=== PATIENT | male | born 1935 | race Caucasian/White ===

== ENCOUNTER → 2020-03-10 | Outpatient (CLI) | payer MEDICARE, OTHER ==
[~2020-03-10] MED LIST: CATHETER FLUSH 10 ML SYR IV PRN; HOLD METFORMIN - RECEIVED CONTRAST 20 ML VIAL IV SCH; IOHEXOL 350 MG/ML 100 ML (OMNIPAQUE 350) VIAL IV ONE; NS 100 ML (IVPB) BAG IV ONE
[2020-03-10 08:56] LABS: BUN/CREATININE RATIO 12; CARBON DIOXIDE 22 MMOL/L (21-32); CHLORIDE 106 MMOL/L (98-107); CREATININE SERUM 1.09 MG/DL (0.60-1.30); GFR ESTIMATED > 60; POTASSIUM 4.4 MMOL/L (3.6-5.0); SODIUM 138 MMOL/L (135-145)
[2020-03-10 08:57] LABS: ALANINE AMINOTRANSFERASE 5 U/L (0-55); ALKALINE PHOSPHATASE 52 U/L (40-136); BILIRUBIN,TOTAL 1.2 MG/DL (0.1-1.0); CALCIUM 8.9 MG/DL (8.5-10.1); GLUCOSE 93 MG/DL (70-105); TOTAL PROTEIN 7.3 GM/DL (6.4-8.2)
[2020-03-10 08:58] LABS: ALBUMIN 3.5 GM/DL (3.2-4.5)
--- NOTE | 2020-03-10 10:31 | Diagnostic Imaging Report ---
CT CHEST W TECHNIQUE: Multiple contiguous axial images were obtained through the chest with the use of intravenous contrast. All CT scans use one or more of the following dose optimizing techniques: automated exposure control, MA and/or KvP adjustment based on a patient size and exam type, or iterative reconstruction. INDICATION: Abnormal chest x-ray COMPARISON: None available. FINDINGS: Lungs and airway: No endoluminal nodule within the trachea. No pulmonary mass or consolidation. No bronchiectasis or honeycombing. Calcified granuloma within the left lower lobe. No suspicious pulmonary nodules. Pleura: No pleural effusion or pneumothorax. Heart and mediastinum: Thyroid is normal. No supraclavicular or axillary lymphadenopathy. No mediastinal, hilar or juxtaphrenic lymphadenopathy. Heart is mildly enlarged without pericardial effusion. Coronary artery calcifications are present. Small sliding-type hiatal hernia. Upper abdomen: Exophytic cyst in the upper pole of the right kidney. A small amount of pneumobilia is identified which may be from prior sphincterotomy. No acute abnormality in the upper abdomen. 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 No worrisome focal osseous lesion on either side. IMPRESSION: 1. No features of intrathoracic neoplasm or acute process. 2. Cardiomegaly with coronary artery plaquing. Dictated by: Dictated on workstation # [id number]
== END ==
LOC: LAB FS 07:44
PROVIDERS: ATTEND Family Medicine
DX: I25.10 Atherosclerotic heart disease of native coronary artery without angina pectoris (principal); I51.7 Cardiomegaly; R93.89 Abnormal findings on diagnostic imaging of other specified body structures
CPT/HCPCS: 36415; 71260; 80053

== ENCOUNTER 2021-02-21 21:57 | Emergency (ER) | payer MEDICARE, OTHER ==
[~2021-02-21] VITALS: Ht 167 cm; Wt 83.5 kg
--- NOTE | 2021-02-21 22:02 | ED General ---
General Stated Complaint: AMS History of Present Illness Date Seen by Provider: Feb 21, 2021 Time Seen by Provider: 22:02 Initial Comments 85-year-old male brought in by EMS. Patient himself does not have any complaints. Family reports that "he was not acting right" but upon arrival to the ER family told nurse that he was "back to his normal. EMS reports that the patient had little lower blood pressure upon arrival to his home however this is not the case upon arrival to the ER. Patient does not report any recent cough, fever chills shortness of breath or urinary symptoms. Allergies and Home Medications Allergies Coded Allergies: No Allergy Information Available (Unverified , 03/10/20) Patient Home Medication List Home Medication List Reviewed: Yes Review of Systems Review of Systems Constitutional: see HPI EENTM: no symptoms reported Respiratory: no symptoms reported Cardiovascular: no symptoms reported Gastrointestinal: no symptoms reported Genitourinary: no symptoms reported Musculoskeletal: no symptoms reported Skin: no symptoms reported Psychiatric/Neurological: See HPI Physical Exam Vital Signs Vital Signs - First Documented 02/21/21 22:00 Temp 36.5 Pulse 53 Resp 14 B/P (MAP) 115/45 (68) Pulse Ox 96 O2 Delivery Room Air Capillary Refill : Height, Weight, BMI Height: '" Weight: lbs. oz. kg; BMI Method: General Appearance: No Apparent Distress, WD/WN HEENT: PERRL/EOMI Neck: Non Tender Respiratory: Lungs Clear, Normal Breath Sounds Cardiovascular: Regular Rate, Rhythm, Other (bilateral 1+ edema, chronic ) Neurologic/Psychiatric: Alert, Oriented x3, No Motor/Sensory Deficits, Normal Mood/Affect, him tech II-XII Norm as Tested Skin: Normal Color, Warm/Dry Progress/Results/Core Measures Suspected Sepsis SIRS Temperature: Pulse: Respiratory Rate: Laboratory Tests 02/21/21 22:10: White Blood Count 7.2 Blood Pressure / Mean: Laboratory Tests 02/21/21 22:10: Platelet Count 181 02/21/21 22:54: Creatinine 1.27, Total Bilirubin 1.0 Results/Orders Lab Results Laboratory Tests Test 02/21/21 22:10 02/21/21 22:54 Range/Units White Blood Count 7.2 4.3-11.0 10^3/uL Red Blood Count 3.86 L 4.30-5.52 10^6/uL Hemoglobin 12.1 L 13.3-17.7 g/dL Hematocrit 36 L 40-54 % Mean Corpuscular Volume 92 80-99 fL Mean Corpuscular Hemoglobin 31 25-34 pg Mean Corpuscular Hemoglobin Concent 34 32-36 g/dL Red Cell Distribution Width 13.3 10.0-14.5 % Platelet Count 181 130-400 10^3/uL Mean Platelet Volume 9.3 9.0-12.2 fL Immature Granulocyte % (Auto) 0 % Neutrophils (%) (Auto) 54 42-75 % Lymphocytes (%) (Auto) 30 12-44 % Monocytes (%) (Auto) 9 0-12 % Eosinophils (%) (Auto) 6 0-10 % Basophils (%) (Auto) 1 0-10 % Neutrophils # (Auto) 3.9 1.8-7.8 X 10^3 Lymphocytes # (Auto) 2.1 1.0-4.0 X 10^3 Monocytes # (Auto) 0.7 0.0-1.0 X 10^3 Eosinophils # (Auto) 0.4 H 0.0-0.3 10^3/uL Basophils # (Auto) 0.1 0.0-0.1 10^3/uL Sodium Level 140 135-145 MMOL/L Potassium Level 4.7 3.6-5.0 MMOL/L Chloride Level 105 98-107 MMOL/L Carbon Dioxide Level 24 21-32 MMOL/L Anion Gap 11 5-14 MMOL/L Blood Urea Nitrogen 17 7-18 MG/DL Creatinine 1.27 0.60-1.30 MG/DL Estimat Glomerular Filtration Rate 54 BUN/Creatinine Ratio 13 Glucose Level 137 H 70-105 MG/DL Calcium Level 8.9 8.5-10.1 MG/DL Corrected Calcium 9.1 8.5-10.1 MG/DL Magnesium Level 2.1 1.6-2.4 MG/DL Total Bilirubin 1.0 0.1-1.0 MG/DL Aspartate Amino Transf (AST/SGOT) 11 5-34 U/L Alanine Aminotransferase (ALT/SGPT) 5 0-55 U/L Alkaline Phosphatase 49 40-136 U/L Troponin I < 0.30 <0.30 NG/ML Total Protein 7.2 6.4-8.2 GM/DL Albumin 3.8 3.2-4.5 GM/DL My Orders Orders - FREDDY GARCIA DO Ct Head Wo-R/O Stroke (02/21/21 22:02) Cbc With Automated Diff (02/21/21 22:02) Comprehensive Metabolic Panel (02/21/21 22:02) Magnesium (02/21/21 22:02) Troponin I Fs (02/21/21 22:02) Chest 1 View Ap/Pa Only (02/21/21 22:02) Ekg Tracing (02/21/21 22:02) Vital Signs/I&O 02/21/21 02/21/21 22:00 23:55 Temp 36.5 36.7 Pulse 53 79 Resp 14 14 B/P (MAP) 115/45 (68) 115/45 Pulse Ox 96 98 O2 Delivery Room Air Room Air Capillary Refill : Progress Note : Progress Note Patient with no significant physical findings, lab or imaging findings. No acute changes on EKG. Patient symptoms described by family and EMS seem most consistent with a vasovagal response. Patient was stable discharged home. He should follow-up with primary care provider as needed ECG Initial ECG Impression Date: Feb 21, 2021 Initial ECG Impression Time: 23:12 Initial ECG Rate: 69 Initial ECG Intervals: OR (66) Comment RBBB. short pr, sinus,no acute findings Diagnostic Imaging Diagonstic Imaging: CT Plain Films/CT/US/NM/MRI: head Comments Date of Exam:02/21/21 CT HEAD WO-R/O STROKE PROCEDURE: CT head wo r/o stroke. TECHNIQUE: Multiple contiguous axial images were obtained through the brain without the use of intravenous contrast. Auto Exposure Controls were utilized during the CT exam to meet ALARA standards for radiation dose reduction. INDICATION: Weakness and confusion. No priors. FINDINGS: No focal or generalized cerebral edema. There is generalized cerebral cortical atrophy without hydrocephalus. There is intracranial atherosclerotic vascular calcifications. No sulcal effacement. No loss of the cortical menjivar-white matter differentiations. No intracerebral asymmetry. The basilar cisterns are patent. No findings to suggest elevation of the intracerebral pressures. Orbits, sinuses, and calvarium nonacute. IMPRESSION: Chronic senescent changes but no hemorrhage, edema, mass or acute appearing abnormalities. Departure Impression Primary Impression: Vaso-vagal reaction Disposition: 01 HOME, SELF-CARE Condition: Stable Departure-Patient Inst. Referrals: RAIMUNDO HENDERSON MD (PCP/Family) Primary Care Physician Patient Instructions: Vasovagal Response (DC) Add. Discharge Instructions: Follow-up with your primary care provider as needed for continuation of care and further outpatient management FREDDY GARCIA DO Feb 21, 2021 22:02
[2021-02-21 22:17] LABS: HEMATOCRIT 36 % (40-54); HEMOGLOBIN 12.1 g/dL (13.3-17.7); MEAN CORPUSCULAR HEMOGLOBIN 31 pg (25-34); MEAN CORPUSCULAR HGB CONC 34 g/dL (32-36); MEAN CORPUSCULAR VOLUME 92 fL (80-99); WHITE BLOOD COUNT 7.2 10^3/uL (4.3-11.0)
[2021-02-21 22:18] LABS: BASOPHILS % (AUTO) 1 % (0-10); EOSINOPHILS % (AUTO) 6 % (0-10); LYMPHOCYTES # (AUTO) 2.1 X 10^3 (1.0-4.0); LYMPHOCYTES % (AUTO) 30 % (12-44); MEAN PLATELET VOLUME 9.3 fL (9.0-12.2); MONOCYTES % (AUTO) 9 % (0-12); NEUTROPHILS # (AUTO) 3.9 X 10^3 (1.8-7.8); NEUTROPHILS % (AUTO) 54 % (42-75); PLATELET COUNT 181 10^3/uL (130-400)
[2021-02-21 22:19] LABS: BASOPHILS # (AUTO) 0.1 10^3/uL (0.0-0.1); EOSINOPHILS # (AUTO) 0.4 10^3/uL (0.0-0.3); MONOCYTES # (AUTO) 0.7 X 10^3 (0.0-1.0)
--- NOTE | 2021-02-21 23:04 | Diagnostic Imaging Report ---
PROCEDURE: CT head wo r/o stroke. TECHNIQUE: Multiple contiguous axial images were obtained through the brain without the use of intravenous contrast. Auto Exposure Controls were utilized during the CT exam to meet ALARA standards for radiation dose reduction. INDICATION: Weakness and confusion. No priors. FINDINGS: No focal or generalized cerebral edema. There is generalized cerebral cortical atrophy without hydrocephalus. There is intracranial atherosclerotic vascular calcifications. No sulcal effacement. No loss of the cortical menjivar-white matter differentiations. No intracerebral asymmetry. The basilar cisterns are patent. No findings to suggest elevation of the intracerebral pressures. Orbits, sinuses, and calvarium nonacute. IMPRESSION: Chronic senescent changes but no hemorrhage, edema, mass or acute appearing abnormalities. Dictated by: Dictated on workstation # [id number]
--- NOTE | 2021-02-21 23:18 | Diagnostic Imaging Report ---
INDICATION: Weakness FINDINGS: The lungs are clear. No failure, effusion or pneumothorax. The heart size upper limits but no significant vascular congestion. IMPRESSION: No acute appearing abnormality Dictated by: Dictated on workstation # [id number]
[2021-02-21 23:38] LABS: CARBON DIOXIDE 24 MMOL/L (21-32); CHLORIDE 105 MMOL/L (98-107); POTASSIUM 4.7 MMOL/L (3.6-5.0); SODIUM 140 MMOL/L (135-145)
[2021-02-21 23:39] LABS: ALANINE AMINOTRANSFERASE 5 U/L (0-55); ALBUMIN 3.8 GM/DL (3.2-4.5); ALKALINE PHOSPHATASE 49 U/L (40-136); BUN/CREATININE RATIO 13; CALCIUM 8.9 MG/DL (8.5-10.1); CREATININE SERUM 1.27 MG/DL (0.60-1.30); GFR ESTIMATED 54; GLUCOSE 137 MG/DL (70-105); MAGNESIUM 2.1 MG/DL (1.6-2.4); TOTAL PROTEIN 7.2 GM/DL (6.4-8.2)
[2021-02-21 23:55] VITALS: BP 115/45
== END 2021-02-21 23:55 | disposition home or self-care (01) ==
LOC: EDUNIT# 21:57 → ER FS 21:58
DX: R55 Syncope and collapse (principal)
CPT/HCPCS: 36415; 70450; 71045; 80053; 83735; 84484; 85025; 93005

== ENCOUNTER 2021-03-21 16:00 | Emergency (ER) | payer MEDICARE, OTHER ==
[~2021-03-21] VITALS: Ht 165.1 cm; Wt 85.2 kg
[2021-03-21] MEDS ORDERED: NS IV 500 ML 500 ML IV ONE (16:30)
[2021-03-21 16:41] LABS: BASOPHILS % (AUTO) 1 % (0-10); EOSINOPHILS % (AUTO) 6 % (0-10); HEMATOCRIT 38 % (40-54); HEMOGLOBIN 13.2 g/dL (13.3-17.7); LYMPHOCYTES % (AUTO) 29 % (12-44); MEAN CORPUSCULAR HEMOGLOBIN 31 pg (25-34); MEAN CORPUSCULAR HGB CONC 35 g/dL (32-36); MEAN CORPUSCULAR VOLUME 91 fL (80-99); MEAN PLATELET VOLUME 9.3 fL (9.0-12.2); MONOCYTES % (AUTO) 9 % (0-12); NEUTROPHILS % (AUTO) 55 % (42-75); PLATELET COUNT 233 10^3/uL (130-400); WHITE BLOOD COUNT 6.9 10^3/uL (4.3-11.0)
[2021-03-21 16:42] LABS: BASOPHILS # (AUTO) 0.1 10^3/uL (0.0-0.1); EOSINOPHILS # (AUTO) 0.4 10^3/uL (0.0-0.3); MONOCYTES # (AUTO) 0.6 X 10^3 (0.0-1.0); NEUTROPHILS # (AUTO) 3.7 X 10^3 (1.8-7.8)
--- NOTE | 2021-03-21 16:46 | ED General ---
General Chief Complaint: Cardiac/General Problems Nursing Triage Note: Patient sent from Dr. 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 Patient states he had a hypotensive and bradycardic episode two weeks ago, but has been feeling well since then. He denies any new or concerning symptoms on arrival to the ED today. Source of Information: Patient, Family Exam Limitations: No Limitations History of Present Illness Date Seen by Provider: Mar 21, 2021 Time Seen by Provider: 16:20 Initial Comments Here with report of being instructed to follow-up here by his primary care provider after abnormal MRI test today. Apparently he had MRI due to changes in vision although this seems to be be attributed to glaucoma. He also had some abnormalities in blood pressure and pulse rate. Irregardless, he did have MRI done which showed concerns for internal carotid dissection versus atherosclerotic changes with recommendation of CT angiogram of the head and neck. His primary care provider sent him here for further evaluation. Patient denies any weakness, speech problems, balance or walking problems. Vision problems have been going on for a few weeks and he is set up with retinologist and will see him in a few weeks. He is on eyedrops for glaucoma to the left eye where he has the vision problems. Otherwise he had no other presenting symptoms or concerns other than being instructed to follow-up here due to abnormal MRI. Patient does report being on blood thinner of some sort but does not remember the name. Timing/Duration: Other (No significant symptoms currently other than change in vision to left eye.) Severity: Mild Associated Systoms: Denies Symptoms Allergies and Home Medications Allergies Coded Allergies: Penicillins (Verified Allergy, Unknown, 03/21/21) Patient Home Medication List Home Medication List Reviewed: Yes Review of Systems Review of Systems Constitutional: No chills, No fever EENTM: see HPI Respiratory: No cough, No short of breath Cardiovascular: No chest pain, No edema Gastrointestinal: constipation (Intermittent); No nausea, No vomiting Genitourinary: No dysuria; hesitancy (Chronic) Musculoskeletal: no symptoms reported Skin: no symptoms reported Psychiatric/Neurological: Denies Headache, Denies Numbness, Denies Paresthesia, Denies Weakness Hematologic/Lymphatic: Blood Clots (History of blood clots in the legs bilateral) All Other Systems Reviewed Negative Unless Noted: Yes Past Ksefhvb-Sqtzjk-Gedxse Hx Patient Social History Tobacco Use?: No Substance use?: No Alcohol Use?: No Past Medical History Surgeries: Yes (Basal cell removal left hand) Respiratory: No Cardiac: Yes High Cholesterol, Hypertension Neurological: No Genitourinary: Yes Prostate Problems Gastrointestinal: No HEENT: Yes Glaucoma Family Medical History Reviewed and Corrections made No Pertinent Family Hx Physical Exam Vital Signs Vital Signs - First Documented 03/21/21 16:10 Temp 36.7 Pulse 97 Resp 14 B/P (MAP) 175/82 (113) Pulse Ox 95 O2 Delivery Room Air Capillary Refill : Less Than 3 Seconds Height, Weight, BMI Height: '" Weight: lbs. oz. kg; 31.00 BMI Method: General Appearance: No Apparent Distress, WD/WN HEENT: PERRL/EOMI, Pharynx Normal Neck: Full Range of Motion, Normal Inspection, Non Tender, Supple; No Carotid Bruit Respiratory: Lungs Clear, Normal Breath Sounds Cardiovascular: Regular Rate, Rhythm, No Murmur Gastrointestinal: Non Tender, Soft Back: Normal Inspection, No CVA Tenderness, No Vertebral Tenderness Extremity: Normal Range of Motion, Non Tender, No Calf Tenderness, Pedal Edema (1+ bilateral), Other (Normal gait) Neurologic/Psychiatric: Alert, Oriented x3 Skin: Normal Color, Warm/Dry Progress/Results/Core Measures Suspected Sepsis SIRS Temperature: Pulse: 97 Respiratory Rate: 14 Laboratory Tests 03/21/21 16:30: White Blood Count 6.9 Blood Pressure 175 /82 Mean: 113 Laboratory Tests 03/21/21 16:30: Creatinine 1.19, Platelet Count 233, Total Bilirubin 1.0 Results/Orders Lab Results Laboratory Tests Test 03/21/21 16:30 Range/Units White Blood Count 6.9 4.3-11.0 10^3/uL Red Blood Count 4.22 L 4.30-5.52 10^6/uL Hemoglobin 13.2 L 13.3-17.7 g/dL Hematocrit 38 L 40-54 % Mean Corpuscular Volume 91 80-99 fL Mean Corpuscular Hemoglobin 31 25-34 pg Mean Corpuscular Hemoglobin Concent 35 32-36 g/dL Red Cell Distribution Width 13.2 10.0-14.5 % Platelet Count 233 130-400 10^3/uL Mean Platelet Volume 9.3 9.0-12.2 fL Immature Granulocyte % (Auto) 0 % Neutrophils (%) (Auto) 55 42-75 % Lymphocytes (%) (Auto) 29 12-44 % Monocytes (%) (Auto) 9 0-12 % Eosinophils (%) (Auto) 6 0-10 % Basophils (%) (Auto) 1 0-10 % Neutrophils # (Auto) 3.7 1.8-7.8 X 10^3 Lymphocytes # (Auto) 2.0 1.0-4.0 X 10^3 Monocytes # (Auto) 0.6 0.0-1.0 X 10^3 Eosinophils # (Auto) 0.4 H 0.0-0.3 10^3/uL Basophils # (Auto) 0.1 0.0-0.1 10^3/uL Immature Granulocyte # (Auto) 0.0 0.0-0.1 10^3/uL Sodium Level 140 135-145 MMOL/L Potassium Level 4.2 3.6-5.0 MMOL/L Chloride Level 106 98-107 MMOL/L Carbon Dioxide Level 25 21-32 MMOL/L Anion Gap 9 5-14 MMOL/L Blood Urea Nitrogen 14 7-18 MG/DL Creatinine 1.19 0.60-1.30 MG/DL Estimat Glomerular Filtration Rate 58 BUN/Creatinine Ratio 12 Glucose Level 116 H 70-105 MG/DL Calcium Level 9.5 8.5-10.1 MG/DL Corrected Calcium 9.4 8.5-10.1 MG/DL Total Bilirubin 1.0 0.1-1.0 MG/DL Aspartate Amino Transf (AST/SGOT) 14 5-34 U/L Alanine Aminotransferase (ALT/SGPT) 8 0-55 U/L Alkaline Phosphatase 52 40-136 U/L Total Protein 7.5 6.4-8.2 GM/DL Albumin 4.1 3.2-4.5 GM/DL My Orders Orders - GISELLE DORSEY MD Ed Iv/Invasive Line Start (03/21/21 16:30) Ns Iv 500 Ml (Sodium Chloride 0.9%) (03/21/21 16:30) Cbc With Automated Diff (03/21/21 16:30) Comprehensive Metabolic Panel (03/21/21 16:30) Ct Angio Head/Neck (03/21/21 17:13) Iohexol Injection (Omnipaque 350 Mg/Ml 1 (03/21/21 17:30) Received Contrast (Hold Metformin- Contr (03/21/21 17:30) Sodium Chloride Flush (Catheter Flush Sy (03/21/21 17:30) Ns (Ivpb) (Sodium Chloride 0.9% Ivpb Bag (03/21/21 17:30) Medications Given in ED Current Medications Medications Dose Ordered Sig/Cuong Route Start Time Stop Time Status Last Admin Dose Admin Iohexol 75 ml ONCE ONCE IV 03/21/21 17:30 03/21/21 17:31 DC 03/21/21 18:04 75 ML Sodium Chloride 10 ml NEEDED PRN IV 03/21/21 17:30 03/21/21 18:04 10 ML Sodium Chloride 100 ml ONCE ONCE IV 03/21/21 17:30 03/21/21 17:31 DC 03/21/21 18:04 100 ML Sodium Chloride 500 ml @ 0 mls/hr Q0M ONCE IV 03/21/21 16:30 03/21/21 16:32 DC 03/21/21 16:40 500 MLS/HR Vital Signs/I&O 03/21/21 16:10 Temp 36.7 Pulse 97 Resp 14 B/P (MAP) 175/82 (113) Pulse Ox 95 O2 Delivery Room Air Capillary Refill : Less Than 3 Seconds Blood Pressure Mean: 113 Progress Note : Progress Note Seen and evaluated. I did review MRI results from radiology done today. That is noted below. We will get IV, labs and CT angio of the head and neck per radiology recommendation. All findings and concerns were discussed with the patient and family who agree with the plan to this point. Monitor patient. 1715: Labs reviewed. CT angiogram head and neck ordered. No new symptoms currently. Monitor patient. 1832: CT head and neck angiogram complete. No dissection. He does have occlusion as discussed below. No emergent intervention required at this point. Patient will need to follow-up with his primary care doctor. Could consider vascular consult outpatient. I will send a copy of the chart to his primary care provider's office. Patient still has no significant focal abnormalities. He is on Xarelto 10 mg p.o. twice daily and verified through pharmacy. He will continue that. Discharged home with return precautions. Patient and family verbalized understanding instructions and agreement with plan. Diagnostic Imaging Diagonstic Imaging: MRI Plain Films/CT/US/NM/MRI: head Comments Results from testing done earlier today and not ordered through emergency department. [facility] [place] [place], [place] NAME: SANTIAGO ANDREA [facility] REC#: [id number] PT STATUS: REG CLI : 1935 PHYSICIAN: RAIMUNDO HARRIS MD ADMIT DATE: 03/21/21/RAD Draft Date of Exam:03/21/21 MRI BRAIN W/O CONTRAST CLINICAL INDICATION: Patient has had possible stroke-like symptoms with weakness and vision changes. EXAM: MRI of the brain performed without IV contrast. Sequences include axial DWI, ADC map, axial gradient echo, axial T2, axial FLAIR, axial T1, and sagittal T1. COMPARISON: Head CT without contrast dated 02/21/2021. FINDINGS: There is no evidence of acute cerebral infarct, intracranial hemorrhage, or gross mass effect. There is diffuse brain parenchymal volume loss. 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 There is normal menjivar-white matter distinction. There is no significant midline shift or herniation. There is thin peripheral slightly high T2/slightly high T1 signal peripherally about the visualized portions of the petrous and cavernous left ICA. This may related to atherosclerotic disease but vascular dissection cannot be excluded. The remainder of the visualized mary[place] igloo of [place] vascular structures show no significant abnormality. There is no evidence of hydrocephalus. The basal cisterns are unremarkable. There are post operative changes to both globes which may be related to lens implants. Otherwise, both globes and orbits are unremarkable. The skull and extracranial soft tissue are unremarkable. There is mild mucosal thickening involving the ethmoid sinus, sphenoid sinus, and frontal sinus. There is a small amount of fluid involving the left mastoid air cells. IMPRESSION: 1: There is abnormal signal circumferentially about the visualized portions of the petrous and cavernous left ICA. These findings may be related to atherosclerotic disease but vascular dissection should be excluded. A CT angiogram of head/neck is suggested for further evaluation. 2: Age related brain parenchymal changes with no acute cerebral infarct. 3: The results of this report were discussed with Dr. Raimundo Harris via the telephone on 03/21/2021 at 1410 hours. Dictated on workstation # [id number] Dict: 03/21/21 1248 Trans: 03/21/21 1415 [id number] Interpreted by: FLORIAN WALLER MD Electronically signed by: [place] Imaging: CT Plain Films/CT/US/NM/MRI: head, other Comments NAME: SANTIAGO ANDREA [facility] REC#: [id number] PT STATUS: REG ER : 1935 PHYSICIAN: GISELLE DORSEY MD ADMIT DATE: 03/21/21/ER FS Draft Date of Exam:03/21/21 CT ANGIO HEAD/NECK EXAMINATION: CT angiography head and neck with and without contrast. TECHNIQUE: After intravenous administration of contrast, thin section axial CT angiography of the head and neck was performed. Source data was reformatted into 3D MIP projections. All CT scans use one or more of the following dose optimizing techniques: automated exposure control, MA and/or KvP adjustment based on patient size and exam type or iterative reconstruction. Any measurements of internal carotid artery stenosis are provided according to NASCET criteria. HISTORY: Abnormal MRI, possible carotid artery dissection. COMPARISON: None available. FINDINGS: There is mild stenosis of the proximal right internal carotid artery. There is focal occlusion of the proximal left internal carotid artery. Vertebral arteries are normal without stenosis. There is circumferential plaque in the left petrous and cavernous carotid artery. No dissection flap is seen. The middle cerebral arteries are normal. The posterior cerebral arteries are normal. The anterior cerebral arteries are normal. There is no large vessel occlusion. No aneurysm or vascular malformation is seen. The menjivar-white matter differentiation is normal. No mass effect or midline shift. The ventricles are normal in size and configuration. Basilar cisterns are patent. There are no intra-axial or extra-axial fluid collections. There is no intracranial hemorrhage. The orbits are normal. Paranasal sinuses are normal. Mastoid air cells are clear. No soft tissue abnormality is seen. No osseus lesions or fractures are seen. No lymphadenopathy is seen in the neck. The muscles of the neck are normal. Fascial planes are preserved and the deep spaces of the neck are normal. Limited views of the superior thorax are unremarkable. No osseous lesions or fractures are seen. IMPRESSION: 1. 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 2. Circumferential plaque in the petrous portion and cavernous portion of the left internal carotid artery. No dissection flap is seen. 3. No large vessel occlusion in the brain. Dictated on workstation # [id number] Dict: 03/21/211805 Trans: 03/21/211818 PJE [id number] Interpreted by: TWIN MIKE MD Electronically signed by: Departure Impression Primary Impression: Occlusion of left internal carotid artery Disposition: HOME, SELF-CARE Condition: Stable Departure-Patient Inst. Decision time for Depature: 18:35 Referrals: RAIMUNDO HARRIS MD (PCP/Family) Primary Care Physician Patient Instructions: Carotid Artery Disease (DC) Add. Discharge Instructions: All discharge instructions reviewed with patient and/or family. Voiced understanding. A copy of your chart was sent to the [facility] placement within your [facility] chart. Follow-up with your doctor tomorrow for recheck and further evaluation. Return for pain, vomiting, vision or balance problems, focal weakness, speech problems, difficulty with walking or other concerns as needed. Continue home medications as previously prescribed. Copy Copies To 1: ERICA TRNOCOSO MD, TIMOTHY D MD Mar 21, 2021 16:46
[2021-03-21 17:01] LABS: ALBUMIN 4.1 GM/DL (3.2-4.5); CALCIUM 9.5 MG/DL (8.5-10.1); CREATININE SERUM 1.19 MG/DL (0.60-1.30); POTASSIUM 4.2 MMOL/L (3.6-5.0); TOTAL PROTEIN 7.5 GM/DL (6.4-8.2)
[2021-03-21] MEDS ORDERED: HOLD METFORMIN - RECEIVED CONTRAST 20 ML VIAL IV SCH (17:30)
[2021-03-21] MEDS ORDERED: IOHEXOL 350 MG/ML 100 ML (OMNIPAQUE 350) VIAL IV ONE (17:30)
[2021-03-21] MEDS ORDERED: NS 100 ML (IVPB) BAG IV ONE (17:30)
[2021-03-21] MEDS ORDERED: CATHETER FLUSH 10 ML SYR IV PRN (17:30)
--- NOTE | 2021-03-21 18:20 | Diagnostic Imaging Report ---
EXAMINATION: CT angiography head and neck with and without contrast. TECHNIQUE: After intravenous administration of contrast, thin section axial CT angiography of the head and neck was performed. Source data was reformatted into 3D MIP projections. All CT scans use one or more of the following dose optimizing techniques: automated exposure control, MA and/or KvP adjustment based on patient size and exam type or iterative reconstruction. Any measurements of internal carotid artery stenosis are provided according to NASCET criteria. HISTORY: Abnormal MRI, possible carotid artery dissection. COMPARISON: None available. FINDINGS: There is mild stenosis of the proximal right internal carotid artery. There is focal occlusion of the proximal left internal carotid artery. Vertebral arteries are normal without stenosis. There is circumferential plaque in the left petrous and cavernous carotid artery. No dissection flap is seen. The middle cerebral arteries are normal. The posterior cerebral arteries are normal. The anterior cerebral arteries are normal. There is no large vessel occlusion. No aneurysm or vascular malformation is seen. The menjivar-white matter differentiation is normal. No mass effect or midline shift. The ventricles are normal in size and configuration. Basilar cisterns are patent. There are no intra-axial or extra-axial fluid collections. There is no intracranial hemorrhage. The orbits are normal. Paranasal sinuses are normal. Mastoid air cells are clear. No soft tissue abnormality is seen. No osseus lesions or fractures are seen. No lymphadenopathy is seen in the neck. The muscles of the neck are normal. Fascial planes are preserved and the deep spaces of the neck are normal. Limited views of the superior thorax are unremarkable. No osseous lesions or fractures are seen. IMPRESSION: 1. 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 2. Circumferential plaque in the petrous portion and cavernous portion of the left internal carotid artery. No dissection flap is seen. 3. No large vessel occlusion in the brain. Dictated by: Dictated on workstation # [id number]
[2021-03-21 18:39] VITALS: BP 159/82
== END 2021-03-21 18:41 | disposition home or self-care (01) ==
LOC: EDUNIT# 16:00 → ER FS 16:02
DX: I65.22 Occlusion and stenosis of left carotid artery (principal); I10 Essential (primary) hypertension; H40.9 Unspecified glaucoma
CPT/HCPCS: 36415; 70496; 70498; 80053; 85025

== ENCOUNTER → 2021-03-21 | Outpatient (CLI) | payer MEDICARE, OTHER ==
--- NOTE | 2021-03-21 14:16 | Diagnostic Imaging Report ---
CLINICAL INDICATION: Patient has had possible stroke-like symptoms with weakness and vision changes. EXAM: MRI of the brain performed without IV contrast. Sequences include axial DWI, ADC map, axial gradient echo, axial T2, axial FLAIR, axial T1, and sagittal T1. COMPARISON: Head CT without contrast dated 02/21/2021. FINDINGS: There is no evidence of acute cerebral infarct, intracranial hemorrhage, or gross mass effect. There is diffuse brain parenchymal volume loss. 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 There is normal menjivar-white matter distinction. There is no significant midline shift or herniation. There is thin peripheral slightly high T2/slightly high T1 signal peripherally about the visualized portions of the petrous and cavernous left ICA. This may related to atherosclerotic disease but vascular dissection cannot be excluded. The remainder of the visualized [place] vascular structures show no significant abnormality. There is no evidence of hydrocephalus. The basal cisterns are unremarkable. There are post operative changes to both globes which may be related to lens implants. Otherwise, both globes and orbits are unremarkable. The skull and extracranial soft tissue are unremarkable. There is mild mucosal thickening involving the ethmoid sinus, sphenoid sinus, and frontal sinus. There is a small amount of fluid involving the left mastoid air cells. IMPRESSION: 1: There is abnormal signal circumferentially about the visualized portions of the petrous and cavernous left ICA. These findings may be related to atherosclerotic disease but vascular dissection should be excluded. A CT angiogram of head/neck is suggested for further evaluation. 2: Age related brain parenchymal changes with no acute cerebral infarct. 3: The results of this report were discussed with Dr. Abdi Harris via the telephone on 03/21/2021 at 1410 hours. Dictated by: Dictated on workstation # [id number]
== END ==
LOC: RAD 09:35
PROVIDERS: ATTEND Family Medicine
DX: H53.9 Unspecified visual disturbance (principal); R53.1 Weakness
CPT/HCPCS: 70551

== ENCOUNTER 2021-04-06 20:46 | Emergency (ER) | payer MEDICARE, OTHER ==
[~2021-04-06] VITALS: Ht 165.1 cm; Wt 83.9 kg
[2021-04-06] MEDS ORDERED: NS IV 1000 ML 1,000 ML IV STA (21:04)
[2021-04-06 21:08] LABS: BASOPHILS % (AUTO) 1 % (0-10); EOSINOPHILS % (AUTO) 5 % (0-10); HEMATOCRIT 34 % (40-54); HEMOGLOBIN 11.3 g/dL (13.3-17.7); LYMPHOCYTES % (AUTO) 37 % (12-44); MEAN CORPUSCULAR HEMOGLOBIN 31 pg (25-34); MEAN CORPUSCULAR HGB CONC 34 g/dL (32-36); MEAN CORPUSCULAR VOLUME 92 fL (80-99); MEAN PLATELET VOLUME 9.3 fL (9.0-12.2); MONOCYTES % (AUTO) 8 % (0-12); NEUTROPHILS # (AUTO) 3.2 X 10^3 (1.8-7.8); NEUTROPHILS % (AUTO) 49 % (42-75); PLATELET COUNT 202 10^3/uL (130-400); WHITE BLOOD COUNT 6.5 10^3/uL (4.3-11.0)
[2021-04-06 21:09] LABS: BASOPHILS # (AUTO) 0.1 10^3/uL (0.0-0.1); EOSINOPHILS # (AUTO) 0.4 10^3/uL (0.0-0.3); LYMPHOCYTES # (AUTO) 2.4 X 10^3 (1.0-4.0); MONOCYTES # (AUTO) 0.5 X 10^3 (0.0-1.0)
[2021-04-06 21:11] VITALS: BP 127/57
--- NOTE | 2021-04-06 21:12 | ED General ---
General Chief Complaint: Dizziness/Syncope Stated Complaint: NEAR SYNCOPE Nursing Triage Note: Patient arrived via EMS for complaints of dizziness. Patient states he was sitting down when he felt dizzy and felt like he was going to pass out. EMS started an 18 in the left wrist and has NS going wide open. 400 mls are infused by the time patient arrived. Patient states he feels better now and feels normal. Patient states that he had this happen a few weeks ago as well. Source of Information: Patient, EMS, Old Records History of Present Illness Date Seen by Provider: Apr 06, 2021 Time Seen by Provider: 20:46 Initial Comments 86-year-old male presenting by EMS from home with complaints of dizziness and ne ar syncope. He states he was just sitting at home when he became dizzy and felt like he might pass out. He had some similar symptoms at the beginning of March when he had an MRI and concerns for possible blocked carotid. At that time he got some IV fluids here in the emergency department and was feeling better. He has followed up with his primary care doctor since then advanced advised that they were just monitor and follow along on his symptoms as he had a greater risk of complication from any surgical intervention versus continuing with his collateral blood flow. He had no headache, chest pain, nausea, vomiting, abdominal pain, pain with urination. He denies any cough or shortness of breath. He has had some chronic vision issues and glaucoma and is pending a visit with the retina specialist next week. On arrival to the emergency department he reports he feels back to normal. When EMS arrived to pick him up they stated his initial blood pressure was 81 systolic. With transport they were giving him normal saline and his blood pressure is 108 systolic on arrival to the ED. Timing/Duration: 1 Hour Severity: Moderate Modifying Factors: worse with Movement Associated Systoms: No Chest Pain, No Cough, No Diaphoresis, No Fever/Chills, No Headaches, No Loss of Appetite, No Malaise, No Nausea/Vomiting, No Rash, No Seizure, No Shortness of Air, No Syncope, No Weakness Allergies and Home Medications Allergies Coded Allergies: Penicillins (Verified Allergy, Unknown, 03/21/21) Patient Home Medication List Home Medication List Reviewed: Yes Review of Systems Review of Systems Constitutional: No chills; dizziness; No fever EENTM: see HPI Respiratory: see HPI; No cough, No short of breath Cardiovascular: see HPI; No chest pain; edema (chronic stable 1+ pitting edema to BLE) Gastrointestinal: No nausea, No vomiting Genitourinary: No dysuria Musculoskeletal: no symptoms reported Skin: No rash Psychiatric/Neurological: Denies Headache, Denies Numbness, Denies Paresthesia Hematologic/Lymphatic: Blood Clots (Chronic blood clots in his legs that he takes Xarelto for) Past Remrzte-Hcepak-Zmylbv Hx Patient Social History Tobacco Use?: No Substance use?: No Alcohol Use?: No Pt feels they are or have been: No Immunizations Up To Date COVID19 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 oz. 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, 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 as 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 Skin: Normal Color, Warm/Dry Progress/Results/Core Measures Suspected Sepsis SIRS Temperature: Pulse: 58 Respiratory Rate: 16 Laboratory Tests 04/06/21 20:55: White Blood Count 6.5 Blood Pressure 108 /49 Mean: 68 Laboratory Tests 04/06/21 20:55: Creatinine 1.25, Platelet Count 202, Total Bilirubin 0.7 Results/Orders Lab Results Laboratory Tests Test 04/06/21 20:55 Range/Units White Blood Count 6.5 4.3-11.0 10^3/uL Red Blood Count 3.65 L 4.30-5.52 10^6/uL Hemoglobin 11.3 L 13.3-17.7 g/dL Hematocrit 34 L 40-54 % Mean Corpuscular Volume 92 80-99 fL Mean Corpuscular Hemoglobin 31 25-34 pg Mean Corpuscular Hemoglobin Concent 34 32-36 g/dL Red Cell Distribution Width 13.1 10.0-14.5 % Platelet Count 202 130-400 10^3/uL Mean Platelet Volume 9.3 9.0-12.2 fL Immature Granulocyte % (Auto) 0 % Neutrophils (%) (Auto) 49 42-75 % Lymphocytes (%) (Auto) 37 12-44 % Monocytes (%) (Auto) 8 0-12 % Eosinophils (%) (Auto) 5 0-10 % Basophils (%) (Auto) 1 0-10 % Neutrophils # (Auto) 3.2 1.8-7.8 X 10^3 Lymphocytes # (Auto) 2.4 1.0-4.0 X 10^3 Monocytes # (Auto) 0.5 0.0-1.0 X 10^3 Eosinophils # (Auto) 0.4 H 0.0-0.3 10^3/uL Basophils # (Auto) 0.1 0.0-0.1 10^3/uL Immature Granulocyte # (Auto) 0.0 0.0-0.1 10^3/uL Sodium Level 135 135-145 MMOL/L Potassium Level 4.7 3.6-5.0 MMOL/L Chloride Level 104 98-107 MMOL/L Carbon Dioxide Level 22 21-32 MMOL/L Anion Gap 9 5-14 MMOL/L Blood Urea Nitrogen 23 H 7-18 MG/DL Creatinine 1.25 0.60-1.30 MG/DL Estimat Glomerular Filtration Rate 55 BUN/Creatinine Ratio 18 Glucose Level 139 H 70-105 MG/DL Calcium Level 8.5 8.5-10.1 MG/DL Corrected Calcium 9.1 8.5-10.1 MG/DL Magnesium Level 2.0 1.6-2.4 MG/DL Total Bilirubin 0.7 0.1-1.0 MG/DL Aspartate Amino Transf (AST/SGOT) 13 5-34 U/L Alanine Aminotransferase (ALT/SGPT) 6 0-55 U/L Alkaline Phosphatase 40 40-136 U/L Total Protein 5.9 L 6.4-8.2 GM/DL Albumin 3.2 3.2-4.5 GM/DL My Orders Orders - KRUPA VILLALOBOS MD Cbc With Automated Diff (04/06/21 21:04) Magnesium (04/06/21 21:04) Chest 1 View Ap/Pa Only (04/06/21 21:04) Ekg Tracing (04/06/21 21:04) Comprehensive Metabolic Panel (04/06/21 21:) Monitor-Rhythm Ecg Trace Only (04/06/21 21:04) Ed Iv/Invasive Line Start (04/06/21 21:04) Orthostatic Vital Signs (Adult (04/06/21 21:) Ns Iv 1000 Ml (Sodium Chloride 0.9%) (04/06/21 21:04) Vital Signs/I&O 04/06/21 04/06/21 04/06/21 04/06/21 20:47 21:11 21:13 21:15 Temp 35.9 Pulse 58 55 58 62 Resp 16 B/P (MAP) 108/49 (68) 127/57 (80) 129/58 (81) 132/59 (83) Supine Supine Pulse Ox 94 O2 Delivery Room Air Capillary Refill : Less Than 3 Seconds Blood Pressure Mean: 68 Progress Note #1: Progress Note On review of his prior medical chart he did have an ED visit Mar 21 for an MRI that showed concern for possible dissection of the internal carotid however with CT angiogram this turned out to be a blockage instead. He has current collateral blood flow. He had stable labs without acute significant abnormality. He also had a visit at the beginning of February with similar sy mptoms and complaint of not acting right and having low blood pressure but was back to his baseline by time he arrived in the ED. Again he had stable labs and tests on that evaluation His symptoms he reports are resolved as he had received some IV fluids by EMS. Will continue with IV hydration here in the ED and obtain urine as well as orthostatic vital signs, labs, electrocardiogram, cardiac telemetry monitoring. Chest x-ray to evaluate for possible infiltrate or effusion. Differential diagnosis would include dehydration, urinary tract infection, pneumonia, anemia, electrolyte imbalance Progress Note #2: Progress Note Patient refused to provide urine specimen stating that he had just done that a week or two ago and it was normal. His orthostatic vital signs were fine and he did not tilt. His labs appeared stable but he did have a mild elevation of his BUN so he might have been slightly dry. His chest x-ray appears stable from prior imaging. His electrocardiogram appears stable from prior tracings. With him having resolved hypertension and no further symptoms as he received some hydration this could be a vasovagal type episode and related to hydration issues. Will encourage patient to make sure he is drinking plenty of fluids and staying well-hydrated. Encouraged to follow-up through Dr. Harris for continued concerns and problems. ECG Initial ECG Impression Date: Apr 06, 2021 Initial ECG Impression Time: 21:05 Initial ECG Rate: 56 Initial ECG Rhythm: Normal Sinus Initial ECG Comparisson: Unchanged Comment Normal sinus rhythm with a heart rate of 56 bpm. Slightly prolonged [place] interval of 207 ms. Right bundle branch block with a left anterior fascicular block. Left ventricular hypertrophy. QT interval 482 ms with a QTc interval 466 ms. Appears similar to prior tracings in the system. There is no acute ST elevation or ischemic changes. Diagnostic Imaging Diagonstic Imaging: Xray Plain Films/CT/US/NM/MRI: chest Comments NAME: SANTIAGO ANDREA MED REC#: [id number] PT STATUS: REG ER : 1935 PHYSICIAN: KRUPA VILLALOBOS MD ADMIT DATE: 04/06/21/ER FS Draft Date of Exam:04/06/21 CHEST 1 VIEW AP/PA ONLY PATIENT HISTORY: Syncope, hypotension. TECHNIQUE: Single frontal view of the chest. COMPARISON: 02/21/2021. FINDINGS: The lung volumes are normal. No focal consolidation is seen. No large pleural effusion or pneumothorax is seen. The cardiomediastinal silhouette is normal in size and contour. No acute osseous abnormality is seen. IMPRESSION: No acute pulmonary abnormality seen. Dictated on workstation # [id number] Dict: 04/06/212132 Trans: 04/06/212134 [id number] Interpreted by: JORGE CISNEROS MD Electronically signed by: Reviewed: Reviewed by Me Departure Impression Primary Impression: Vasovagal near syncope Additional Impression: Dehydration Disposition: 01 HOME, SELF-CARE Condition: Stable Departure-Patient Inst. Decision time for Depature: 21:44 Referrals: RAIMUNDO HARRIS MD (PCP/Family) Primary Care Physician Patient Instructions: Near Fainting (DC), Vasovagal Response (DC) Add. Discharge Instructions: Make sure you are staying well hydrated and drinking plenty of water. Follow up with Dr. Harris for continued concerns and recurrent episodes. All discharge instructions reviewed with patient and/or family. Voiced understanding. KRUPA VILLALOBOS MD Apr 06, 2021 21:12
[2021-04-06 21:13] VITALS: BP 129/58
[2021-04-06 21:15] VITALS: BP 132/59
[2021-04-06 21:26] LABS: ALBUMIN 3.2 GM/DL (3.2-4.5); BILIRUBIN,TOTAL 0.7 MG/DL (0.1-1.0); CALCIUM 8.5 MG/DL (8.5-10.1); CREATININE SERUM 1.25 MG/DL (0.60-1.30); POTASSIUM 4.7 MMOL/L (3.6-5.0); TOTAL PROTEIN 5.9 GM/DL (6.4-8.2)
--- NOTE | 2021-04-06 21:36 | Diagnostic Imaging Report ---
PATIENT HISTORY: Syncope, hypotension. TECHNIQUE: Single frontal view of the chest. COMPARISON: 02/21/2021. FINDINGS: The lung volumes are normal. No focal consolidation is seen. No large pleural effusion or pneumothorax is seen. The cardiomediastinal silhouette is normal in size and contour. No acute osseous abnormality is seen. IMPRESSION: No acute pulmonary abnormality seen. Dictated by: Dictated on workstation # [id number]
[2021-04-06 21:46] VITALS: BP 116/44
== END 2021-04-06 21:46 | disposition home or self-care (01) ==
LOC: EDUNIT# 20:46 → ER FS 20:47
DX: R55 Syncope and collapse (principal); E86.0 Dehydration; I10 Essential (primary) hypertension
CPT/HCPCS: 36415; 71045; 80053; 83735; 85025; 93005; 93041

== ENCOUNTER → 2023-01-07 | Outpatient (CLI) | payer MEDICARE, OTHER ==
--- NOTE | 2023-01-07 14:53 | Diagnostic Imaging Report ---
PROCEDURE: US left lower extremity venous. TECHNIQUE: Multiple real-time grayscale images were obtained over the left lower extremity in various projections. Additional duplex Doppler and color Doppler images were also obtained. INDICATION: Left leg saphenous vein clot. FINDINGS: There is no evidence of left lower extremity DVT. Left lower extremity deep venous system shows normal compressibility with normal response to augmentation and Valsalva. There does appear to be some partial thrombus identified in the lesser saphenous vein. No fluid collections are seen. IMPRESSION: 1. No evidence of left lower extremity DVT. 2. Superficial thrombophlebitis in left lesser saphenous vein. Dictated by: Dictated on workstation # [id number]
== END ==
LOC: RAD FS 09:22
PROVIDERS: ATTEND Family Medicine
DX: I80.02 Phlebitis and thrombophlebitis of superficial vessels of left lower extremity (principal); D68.9 Coagulation defect, unspecified; I25.10 Atherosclerotic heart disease of native coronary artery without angina pectoris